=== PATIENT | male | born 1960 | race Caucasian/White ===

== ENCOUNTER → 2017-02-19 | Outpatient (CLI) | payer BC ==
[2017-02-21 03:14] LABS: LDL CHOLESTEROL,CALCULATED 98.8 (66-159); RISK FACTOR 4.6 RATIO (0-5.0); VLDL CHOLESTEROL 16.2 MG/DL (0-28)
== END ==
LOC: LAB 06:41
PROVIDERS: ATTEND Family Medicine
DX: E78.5 Hyperlipidemia, unspecified (principal)
CPT/HCPCS: 80061